=== PATIENT | female | born 1985 ===

== ENCOUNTER 2022-01-02 05:38 | Day surgery (SDC) | payer OTHER ==
[2022-01-02] MEDS ORDERED: MORGIDOX100 MG PO (10:23)
[2022-01-02] MEDS ORDERED: NAPR500T14 PO (10:23)
== END 2022-01-02 15:10 | disposition home or self-care (01) ==
LOC: CIR.AMB 05:38
PROVIDERS: ATTEND Obstetrics & Gynecology
DX: D25.0 Submucous leiomyoma of uterus (principal); N72 Inflammatory disease of cervix uteri; Z20.822 Contact with and (suspected) exposure to COVID-19